=== PATIENT | male | born 1960 | race Two or more races ===

== ENCOUNTER → 2020-01-01 | Outpatient (CLI) | payer OTHER ==
[2020-01-01 18:37] LABS: BASOPHILS # (AUTO) 0.03 x10^3/uL (0-0.1); BASOPHILS % (AUTO) 1 % (0-1); EOSINOPHILS # (AUTO) 0.13 x10^3/uL (0-0.4); EOSINOPHILS % (AUTO) 2 % (1-7); LYMPHOCYTES # (AUTO) 1.43 x10^3/uL (1-3.4); LYMPHOCYTES % (AUTO) 21 % (22-44); MD NO; MEAN CORPUSCULAR HEMOGLOBIN 29.4 pg (27.5-34.5); MEAN CORPUSCULAR HGB CONC 33.5 g/dL (33.2-36.2); MEAN CORPUSCULAR VOLUME 87.7 fL (81-97); MEAN PLATELET VOLUME 8.5 fL (7.4-10.4); MONOCYTES % (AUTO) 7 % (2-9); NEUTROPHILS # (AUTO) 4.82 x10^3/uL (1.8-6.8); NEUTROPHILS % (AUTO) 70 % (42-75); PLATELET COUNT 199 x10^3/uL (130-400); RED BLOOD COUNT 5.52 x10^6/uL (4.38-5.82); RED CELL DISTRIBUTION WIDTH 13.9 % (9.4-14.8)
[2020-01-01 18:49] LABS: ALANINE AMINOTRANSFERASE 33 U/L (12-78); ALBUMIN 4.1 g/dL (3.4-5.0); ANION GAP 9 mmol/L (5-15); CALCIUM 9.4 mg/dL (8.5-10.1); CHLORIDE 110 mmol/L (98-107)
[2020-01-01 18:51] LABS: ALKALINE PHOSPHATASE 88 U/L (45-117); BILIRUBIN,TOTAL 0.3 mg/dL (0.2-1.0); TOTAL PROTEIN 7.5 g/dL (6.4-8.2)
== END | disposition home or self-care (01) ==
LOC: RAD 17:56
PROVIDERS: ATTEND Family Medicine
DX: N20.0 Calculus of kidney (principal); N28.89 Other specified disorders of kidney and ureter; R31.9 Hematuria, unspecified
CPT/HCPCS: 36415; 74176; 80053; 85025

== ENCOUNTER 2021-01-11 19:24 | Emergency (ER) | payer OTHER ==
[~2021-01-11] VITALS: Ht 172.7 cm; Wt 86.0 kg
[2021-01-11] MEDS ORDERED: SODIUM CHLORIDE 0.9% 1,000ML IVBOLUS ONE (19:30)
[2021-01-11] MEDS ORDERED: SODIUM CHLORIDE FLUSH 10ML SYR IVF ONE (19:30)
[2021-01-11] MEDS ORDERED: ONDANSETRON 2MG/ML, 2ML ONE ×2 (19:32→20:03)
[2021-01-11] MEDS ORDERED: MORPHINE SULFATE 4 MG/ML, 1ML ONE ×2 (19:32→20:03)
--- NOTE | 2021-01-11 19:55 | NUR ---
BIBA FOR ACUTE RLQ PAIN STARTING AT 1730. NO ABD SURGICAL HX, DOES HAVE HX OF KIDNEY STONE PIV IN PLACE FROM [facility], 1L NS THEN PAIN/NAUSEA MEDS PER EMAR PATIENT IN IMMENSE PAIN/DIAPHORETIC/VOMITING
[2021-01-11 19:58] LABS: BASOPHILS % (AUTO) 1 % (0-1); EOSINOPHILS % (AUTO) 1 % (1-7); LYMPHOCYTES % (AUTO) 14 % (22-44); MEAN CORPUSCULAR HEMOGLOBIN 29.2 pg (27.5-34.5); MEAN PLATELET VOLUME 8.5 fL (7.4-10.4); MONOCYTES % (AUTO) 5 % (2-9); NEUTROPHILS % (AUTO) 80 % (42-75); PLATELET COUNT 206 x10^3/uL (130-400); RED BLOOD COUNT 5.32 x10^6/uL (4.38-5.82); RED CELL DISTRIBUTION WIDTH 13.7 % (9.4-14.8)
[2021-01-11] MEDS: MORPHINE SULFATE 4 MG/ML, 1ML IVPush PRN ×2 (20:00→20:06)
[2021-01-11] MEDS ORDERED: PLEASE ENTER ALLERGIES MC SCH (20:00)
[2021-01-11] MEDS ORDERED: ONDANSETRON 2MG/ML, 2ML IVPush ONE ×2 (20:00→20:30)
[2021-01-11 20:05] LABS: ALANINE AMINOTRANSFERASE 43 U/L (12-78); ANION GAP 9 mmol/L (5-15); CALCIUM 8.8 mg/dL (8.5-10.1); CHLORIDE 106 mmol/L (98-107); CREATININE 1.34 mg/dL (0.7-1.3)
[2021-01-11 20:08] LABS: ALKALINE PHOSPHATASE 96 U/L (45-117); BILIRUBIN,TOTAL 0.4 mg/dL (0.2-1.0); TOTAL PROTEIN 7.6 g/dL (6.4-8.2)
--- NOTE | 2021-01-11 20:14 | NUR ---
PATIENT VOMITING/REMAINS IN IMMENSE PAIN REFRACTORY TO MEDS X2. ERP MADE AWARE. RUSHED TO CT SCAN AT 2014
[2021-01-11] MEDS ORDERED: OMNIPAQUE 350 MG/ML, 100ML BOTTLE ONE (20:30)
[2021-01-11] MEDS ORDERED: PROMETHAZINE 25 MG/ML, 1ML ONE (20:38)
[2021-01-11] MEDS ORDERED: PROMETHAZINE 25 MG/ML, 1ML IM ONE (21:00)
[2021-01-11] MEDS ORDERED: KETOROLAC 15 MG/1ML IVPush ONE (21:00)
[2021-01-11] MEDS ORDERED: KETOROLAC 30 MG/1 ML ONE (21:03)
--- NOTE | 2021-01-11 21:05 | NUR ---
PAIN/NAUSEA NOW COMPLETELY RELIEVED. ERP TO BEDSIDE. TO D/C SHORTLY
[2021-01-11] MEDS ORDERED: KETOROLAC 30 MG/1 ML IVPush ONE (21:30)
[2021-01-11 21:46] VITALS: BP 137/80
== END 2021-01-11 21:48 | disposition home or self-care (01) ==
LOC: ED 20:33
DX: N20.1 Calculus of ureter (principal); Z90.89 Acquired absence of other organs
CPT/HCPCS: 36415; 74177; 80053; 83690; 85025; 96361; 96372; 96374; 96375; 99285; J1885; J2270; J2405; J2550; J7030; Q9967; 96376